=== PATIENT | male | born 1950 | race Hispanic/Latino ===

== ENCOUNTER 2016-07-09 09:20 | Outpatient (CLI) | payer MEDICARE ==
--- NOTE | 2016-07-09 12:37 | XRay Report ---
LEFT ELBOW THREE VIEWS: 07/09/16 09:20:00 CLINICAL: Trauma with contusion. FINDINGS: Normal bones, joints and soft tissues. No fracture or dislocation. IMPRESSION: Normal.
== END 2016-07-09 09:21 | disposition home or self-care (01) ==
LOC: SPVIMAG 09:20
PROVIDERS: ATTEND Internal Medicine
DX: S50.02XA Contusion of left elbow, initial encounter (principal); X58.XXXA Exposure to other specified factors, initial encounter; Y93.89 Activity, other specified; Y92.89 Other specified places as the place of occurrence of the external cause; Y99.8 Other external cause status

== ENCOUNTER 2019-07-05 06:20 | Day surgery (SDC) | payer MEDICARE ==
[2019-07-05] MEDS ORDERED: ASPIRIN EC 325 MG TAB PO ONE (07:31)
[2019-07-05 07:44] LABS: Basophils # (Auto) 0.1 K/mm3 (0.0-0.1); Basophils % (Auto) 0.9 % (0.0-1.8); Eosinophils # (Auto) 0.3 K/mm3 (0.0-0.4); Eosinophils % (Auto) 3.7 % (0.0-4.3); Hematocrit 38.8 % (35.5-45.6); Hemoglobin 12.6 gm/dl (11.8-15.2); Lymphocytes # (Auto) 3.6 K/mm3 (1.2-5.4); Lymphocytes % (Auto) 44.3 % (13.4-35.0); Mean Corpuscular HGB Conc 33 % (32-34); Mean Corpuscular Volume 89 fl (84-94); Monocytes # (Auto) 0.6 K/mm3 (0.0-0.8); Monocytes % (Auto) 7.8 % (0.0-7.3); Platelet Count 358 K/mm3 (140-440); Red Blood Count 4.38 M/mm3 (3.65-5.03)
[2019-07-05 07:55] LABS: INR 0.94 (0.87-1.13)
[2019-07-05] MEDS ORDERED: SODIUM CHLORIDE 0.9% 500 ML 500 ML IV SCH (08:00)
[2019-07-05 08:27] LABS: Calcium 9.3 mg/dL (8.4-10.2)
[2019-07-05] MEDS ORDERED: fentaNYL 100 MCG/2 ML INJ ONE ×2 (09:16→09:28)
[2019-07-05] MEDS ORDERED: LIDOCAINE (2%) 20 MG/1 ML VIAL 20 ML MDV INFILTRATI ONE ×2 (09:16→09:28)
[2019-07-05] MEDS ORDERED: MIDAZOLAM 2 MG/2 ML INJ ONE ×2 (09:16→09:28)
[2019-07-05] MEDS ORDERED: VERAPAMIL 5 MG/2 ML INJ ONE ×2 (09:16→09:28)
[2019-07-05] MEDS ORDERED: HEPARIN 10,000 UNITS/10 ML VIAL ONE ×2 (09:16→09:28)
[2019-07-05] MEDS ORDERED: HEPARIN/NS 5000 UNIT/500ML 0 ML IR ONE (09:16)
[2019-07-05] MEDS ORDERED: NITROGLYCERIN SYRINGE 0 ML ONE (09:17)
[2019-07-05] MEDS ORDERED: HEPARIN/NS 5000 UNIT/500ML 1,000 ML IR ONE (09:28)
[2019-07-05] MEDS ORDERED: NITROGLYCERIN SYRINGE 3 ML ONE (09:28)
[2019-07-05] MEDS ORDERED: traMADol 50 MG TAB PO PRN (09:59)
--- NOTE | 2019-07-05 10:03 | Short Stay Summary ---
Short Stay Documentation Date of service: 07/05/19 - History H&P: obtained from office - Allergies and Medications Current Medications: Allergies latex Adverse Reaction (Verified 07/05/19 09:16) Rash Penicillins Adverse Reaction (Verified 07/05/19 09:16) Rash Home Medications Medication Instructions Recorded Confirmed Last Taken Type Atorvastatin [Lipitor] 40 mg PO QHS 07/05/19 07/05/19 07/04/19 History 40 mg Fenofibrate Nanocrystallized 145 mg PO QHS 07/05/19 07/05/19 07/04/19 History [Fenofibrate] 145 mg Glimepiride [Amaryl] 1 mg PO DAILY 07/05/19 07/05/19 07/04/19 History 1 mg ISOSORBIDE MONOnitrate [Imdur ER] 30 mg PO DAILY 07/05/19 07/05/19 07/04/19 History 30 mg Losartan [Cozaar] 50 mg PO BID 07/05/19 07/05/19 07/04/19 History 50 mg Pioglitazone HCl [Actos] 30 mg PO DAILY 07/05/19 07/05/19 07/04/19 History 30 mg metFORMIN [Glucophage] 850 mg PO BID 07/05/19 07/05/19 07/04/19 History 850 mg Active Medications Sodium Chloride (Nacl 0.9% 500 Ml) 500 mls @ 50 mls/hr IV DIRECT DIAMOND Stop: 07/05/19 17:59 Last Admin: 07/05/19 08:51 Dose: 50 mls/hr Documented by: - Brief post op/procedure progress note Date of procedure: 07/05/19 Pre-op diagnosis: cp and sob Post-op diagnosis: same Procedure: see report Anesthesia: local Estimated blood loss: none Pathology: none - Disposition Condition at discharge: Good Disposition: [id number] TO HOME OR SELFCARE - Discharge Diagnoses (1) CAD (coronary artery disease) Status: Chronic Qualifiers: Coronary Disease-Associated Artery/Lesion type: [place] artery [place] vs. transplanted heart: [place] heart Associated angina: with stable angina Qualified Code(s): I25.118 - Atherosclerotic heart disease of [place] coronary artery with other forms of angina pectoris (2) Morbid obesity Status: Chronic (3) Hypertension Status: Chronic Qualifiers: Hypertension type: essential hypertension Qualified Code(s): I10 - Essential (primary) hypertension (4) Hyperlipemia, mixed Status: Chronic (5) Chest pain Status: Chronic Qualifiers: Chest pain type: unspecified Qualified Code(s): R07.9 - Chest pain, unspecified (6) SOB (shortness of breath) on exertion Status: Chronic (7) Diabetes mellitus Status: Chronic Qualifiers: Diabetes mellitus type: type 2 Diabetes mellitus fdc insulin use: with termite control servicer use Diabetes mellitus complication status: without complication Qualified Code(s): E11.9 - Type 2 diabetes mellitus without complications; Z79.4 - termite control servicer (current) use of insulin Short Stay Discharge Plan Activity: advance as tolerated Diet: low fat, low cholesterol, low salt Wound: keep clean and dry Special Instructions: hold Metformin (for two days) Follow up with: DAINA NGUYỄN JR, MD [Primary Care Provider] - 7 Days
--- NOTE | 2019-07-05 10:19 | Cardiac Catherization Report ---
CLINICAL INFORMATION: This is a 68-year-old gentleman with morbid obesity, hypertension, diabetes, cholesterol, known coronary artery disease, in 2008 had PCI of the mid circumflex with a [id number]er [employer] 3.5 x 15, presents with recurrent shortness of breath and chest pain, is here for suspected coronary artery disease despite negative cardiac PET. Procedure was done with moderate sedation started at 9:35 a.m., finished at 9:50 a.m., which is 15 minutes of moderate sedation. Procedure was done via the right radial artery, sterile technique, local anesthesia, 6-[place] radial sheath inserted. PROCEDURE FINDINGS: Left system engaged with JL3.5 catheter. Left main is large and patent, trifurcates into a medium caliber LAD that is patent with mild luminal irregularities, small to medium caliber ramus that is patent with mild luminal irregularities. Diagonal 1 and diagonal 2 is very small vessels, less than 1.5 mm and patent. Circumflex large caliber vessel, proximal patent, mid stent widely patent, goes to a large caliber OM1 that is patent. RCA engaged with JR4, is a large dominant vessel, diffuse disease, proximal patent, mid crux has a 30-40% lesion, distal patent; bifurcates a small caliber PLV that is patent. PDA is a small caliber, about 2 mm vessel, has a mid 70% lesion, but long. LV gram done in [place] and [place] shows normal LV function with elevated left end-diastolic pressure of 30-35 mmHg. LV is 164. Aortic is 158/85. No gradient across the aortic valve on pullback. A 5-Malays[place] catheters all taken over guidewire, 6-[place] radial sheath was discontinued. Radial band applied. No hematoma, no bleeding. SUMMARY: Left main patent. LAD medium caliber, patent with mild luminal irregularities. Ramus small to medium caliber, patent with mild luminal irregularities. Circumflex mid stent widely patent, goes to a large caliber OM1 patent, RCA large, dominant vessel, proximal patent, mid at the crux has a 30-40% lesion, distal patent. PLV small patent, PDA small mid 70% with normal LV function with elevated left end-diastolic pressure. Continue risk factor modification, may consider diuretics and hold metformin for 48 hours. Discussed this in detail with the patient and the patient's family. [facility]# [id number] [place]
[2019-07-05 12:04] VITALS: BP 138/61
== END 2019-07-05 12:30 | disposition home or self-care (01) ==
LOC: CATHLABREC 06:20
PROVIDERS: ATTEND Internal Medicine
DX: R07.9 Chest pain, unspecified (principal); R06.02 Shortness of breath; I25.10 Atherosclerotic heart disease of native coronary artery without angina pectoris; E66.01 Morbid (severe) obesity due to excess calories; E78.00 Pure hypercholesterolemia, unspecified; I12.9 Hypertensive chronic kidney disease with stage 1 through stage 4 chronic kidney disease, or unspecified chronic kidney disease; E11.22 Type 2 diabetes mellitus with diabetic chronic kidney disease; N18.2 Chronic kidney disease, stage 2 (mild); G47.30 Sleep apnea, unspecified; Z79.82 Long term (current) use of aspirin; Z79.84 Long term (current) use of oral hypoglycemic drugs; Z79.899 Other long term (current) drug therapy; Z88.0 Allergy status to penicillin; Z88.8 Allergy status to other drugs, medicaments and biological substances; Z91.040 Latex allergy status; Z83.3 Family history of diabetes mellitus; Z82.49 Family history of ischemic heart disease and other diseases of the circulatory system; Z95.5 Presence of coronary angioplasty implant and graft; Z90.49 Acquired absence of other specified parts of digestive tract; Z98.890 Other specified postprocedural states
CPT/HCPCS: 36415; 80048; 85025; 85610; 85730; 93005; 93010; 93458; 99156; C1894; J1644; J2250; J3010; J7040; Q9967